=== PATIENT | female | born 1940 | race Caucasian/White ===

== ENCOUNTER 2016-09-14 13:11 | Day surgery (SDC) | payer OTHER ==
[2016-09-14] MEDS ORDERED: LIDOCAINE 1% 2 ML INJ ID PRN (13:48)
[2016-09-14] MEDS ORDERED: NS 500 ML IV SCH (14:00)
[2016-09-14] MEDS ORDERED: BENZOCAINE UNIT DOSE SPRAY HURRICAINE MM ONE (14:08)
[2016-09-14] MEDS ORDERED: LIDOCAINE 2% JELLY 5 ML TUBE ONE (14:08)
[2016-09-14] MEDS ORDERED: ALBUTEROL 3 ML DEYVIAL ONE ×2 (14:08→16:51)
[2016-09-14] MEDS ORDERED: EPINEPHrine 1 MG/10 ML SYR IVP ONE (14:08)
[2016-09-14] MEDS ORDERED: fentaNYL 100 MCG/2 ML INJ ONE ×2 (14:09→15:53)
[2016-09-14] MEDS ORDERED: MIDAZOLAM 2 MG/2 ML VIAL ONE (14:09)
[2016-09-14] MEDS ORDERED: LIDO/EPI 1% **for epidural** 30 ML SDV ONE (14:12)
[2016-09-14] MEDS ORDERED: LIDOCAINE 1% *Not for Epidural 20 ML MDV ONE (14:15)
[2016-09-14] MEDS ORDERED: LIDOCAINE 1% 300 MG/30 ML SDV ONE (14:20)
--- NOTE | 2016-09-14 15:03 | PDGENHP ---
History and Physical - Chief Complaint cough - History of Present Illness Swallowed a magnesium pill a few weeks ago, felt that it got stuck in her throat. Coughed up some fragments, but continues to have the cough despite a trial of ICS, PO steroids. Cough is mostly non-productive. No fever. History Information - Allergies/Home Medication List Allergies/Adverse Reactions: liraglutide [From Victoza 3-Donte] Allergy (Severe, Verified 12/18/14 10:54) ITCH/NOT FEELING WELL/GAINING WT [id number]-Doc-Vut Reductase Inhibitor Allergy (Severe, Verified 12/18/14 10:54) RASH/DEPRESSED niacin Allergy (Mild, Verified 12/18/14 10:54) Rash Home Medications: Acetaminophen [Tylenol Tablet] 500 mg PO TID PRN 06/04/12 [Last Taken 09/12/16] Ascorbic Acid [Vitamin C 500 mg (OTC)] 1,000 mg PO BID 06/04/12 [Last Taken ] Aspirin [Baby Aspirin] 81 mg PO DAILY 06/04/12 [Last Taken 09/13/16] Calcium Citrate W/Vit D [Citracal + D] 1 each PO DAILY 06/04/12 [Last Taken ] Cholecalciferol Vit D3 [Vitamin D3 2000 units (OTC)] 2,000 units PO DAILY [Last Taken 09/14/16 07:00] Flaxseed Oil [Flax Seed Oil] 1,000 mg PO DAILY 06/04/12 [Last Taken Unknown] Fluticasone Nasal [Flonase Nasal [place] (RX)] 2 sprays NASAL DAILY 06/04/12 [ Last Taken 06/04/12] Furosemide [Lasix 40 MG (RX)] 40 mg PO DAILY 06/04/12 [Last Taken 1 Week Ago] Ibuprofen [Motrin 200 mg (OTC)] 400 mg PO HS 06/04/12 [Last Taken 09/13/16] Lisinopril [Zestril 40 mg (RX)] 40 mg PO DAILY 06/04/12 [Last Taken 06/03/12] Pharmacy Completed 06/04/12 06/04/12 [Last Taken Unknown] Potassium Cl [Klor-Con 20 meq (RX)] 20 meq PO DAILY 06/04/12 [Last Taken 1 Week Ago] Ranitidine HCl [Zantac 150mg/10ml oral liquid (RX)] 150 mg PO DAILY PRN [Last Taken 2 Days Ago] SITAGLIPTIN PHOS/METFORMIN HCL [Janumet 50-1,000 Mg Tablet] 1 each PO BID [Last Taken 09/14/16 07:00] Vitamin B Complex [Vitamin B Complex (OTC)] 1 each PO DAILY 06/04/12 [Last Taken 06/03/12] amLODIPine BESYLATE [Norvasc 5 mg (RX)] 5 mg PO DAILY 06/04/12 [Last Taken 09/14 07:00] Ezetimibe [Zetia 10 MG (*)] 09/14/16 [Last Taken 09/14/16 07:00] Fenofibrate 160 mg 09/14/16 [Last Taken 09/13/16 21:00] Irbesartan 300 mg PO DAILY 09/14/16 [Last Taken 09/14/16 07:00] Magnesium 250 mg 09/14/16 [Last Taken 3 Weeks Ago] Omeprazole 20 mg 09/14/16 [Last Taken 09/14/16 07:00] Synthroid 125 mcg (*) 62.5 mcg 09/14/16 [Last Taken 09/13/16 21:00] buPROPion 150 mg 09/14/16 [Last Taken 09/14/16 07:00] I have personally reviewed and updated: family history, medical history, social history - Past Medical History diabetes type 2, hypertension Additional medical history: Hypothyroid - Social History Smoking Status: Never smoked Physical Exam Temp Pulse Resp BP Pulse Ox 36.9 C 73 15 163/84 H 93 09/14/16 13:41 09/14/16 13:41 09/14/16 13:41 09/14/16 13:41 09/14/16 13:41 Constitutional: no apparent distress Cardiovascular: no murmur, rub, or gallop Respiratory: expiratory wheeze (bilateral) Gastrointestinal: soft, non-tender abdomen, No no palpable masses Skin: normal color Neurologic: AAOx3 Psychiatric: interacting appropriately Lab Data & Imaging Review POC Glucose 131 mg/dL (70-100) H 09/14/16 13:32 Visualized and Interpreted Chest x-ray results: Yes Chest X-Ray results: no infiltrate Assessment & Plan Assessment: Cough: Related to pill aspiration several weeks ago. ? retained fragments. Likely some RAD currently. Plan: Bronchoscopy to evaluate for foreign body.
--- NOTE | 2016-09-14 15:11 | PDPROPOC ---
Sedation Plan of Care Sedation Plan of Care: vital signs stable, mental status noted, patient educated of risks, benefits, alternatives, patient can tolerate sedation ASA Classification: ASA 2 Mallampati Score: Class 2 332 Rule: 332
[2016-09-14] MEDS ORDERED: ALBUTEROL 3 ML DEYVIAL IH ONE (17:00)
--- NOTE | 2016-09-14 17:04 | GPN ---
[f rep st] PROCEDURE NOTE DATE OF PROCEDURE: 09/14/2016 PROCEDURE: Flexible fiberoptic bronchoscopy with foreign body retrieval. REASON FOR PROCEDURE: Cough with possible foreign body. PROCEDURE NOTE: The risks and benefits of the procedure were explained to the patient, who agreed to proceed. The entire procedure was performed in a negative pressure room. After an appropriate time-out, the patient's oropharynx was anesthetized with topical Hurricaine spray, and a bite block was placed between her teeth. The bronchoscope was advanced through the bite block into the vocal cords, which moved normally. 1% lidocaine was used topically on the airways for anesthesia. I advanced the bronchoscope through the vocal cords into the main trachea, which was normal in appearance. I then advanced the bronchoscope to the left mainstem bronchus, where I immediately encountered a large white foreign body in the distal bronchus intermedius, sitting on the royce between the upper and lower lobes. There was significant granulation tissue around this, and it was only partially mobile. I spent over 1 hour trying to mobilize and retrieve this foreign body, using suction, forceps, and a 16 mm, then 12 mm basket. Finally, I was able to mobilize the foreign body by passing a forceps past the body into the upper lobe, and opening the forceps, maneuvering the forceps alongside the foreign body so it would move. I was then able to get a 12 mm basket around the foreign body and retrieve it in its entirety. It's dimensions were 11x10 mm, and it was hard and white. I then reintroduced the bronchoscope into the airways and found extensive inflammatory/granulation tissue sitting around the royce and extending into both the upper and lower lobe segments. All the airways were clear of foreign debris. There was a modest amount of bleeding which was slowing spontaneously. I then proceeded to the right-sided airways, which were normal in appearance. I examined the trachea on the way out, and there were no foreign bodies. The patient tolerated procedure well with the exception of a transient fall in her saturations to the 60s at the beginning of the procedure that improved with the addition of supplemental oxygen. Washings were done of the lower lobe, but no cultures will be sent. Bleeding was nearly completely stopped at the end of the procedure. The patient received Versed and fentanyl intravenously for analgesia and sedation. Estimated blood loss was 10 cc. The patient will be discharged after she recovers from anesthesia. We will contact her primary care physician and would recommend a short course of prednisone to help more rapidly heal the inflammatory reaction to the foreign body in her airway. Copy requested to: Dennis Cardona MD /[id number]/MODL MTDD
[2016-09-14 18:27] VITALS: TEMP 97.9
[2016-09-14 18:29] VITALS: BP 178/88; PULSE 81; RESP 16; O2SAT 95
== END 2016-09-14 17:50 | disposition home or self-care (01) ==
LOC: FSGY 13:11
PROVIDERS: ATTEND Internal Medicine Critical Care Medicine
PROC: 0BC28ZZ Extirpation of Matter from Carina, Via Natural or Artificial Opening Endoscopic (ICD-10-PCS; principal; 2016-09-14 14:30)
DX: T17.598A Other foreign object in bronchus causing other injury, initial encounter (principal); R05 Cough; J45.909 Unspecified asthma, uncomplicated
CPT/HCPCS: J2250; J3010